=== PATIENT | male | born 1950 | race Caucasian/White ===

== ENCOUNTER 2019-02-19 14:40 | Inpatient (IN) | payer MEDICARE, OTHER, SELFPAY ==
[2019-02-19] VITALS (14 sets, daily range): BP systolic 123–154; BP diastolic 75–96; PULSE 52–67; RESP 12–18; TEMP 36.4–36.9; O2SAT 95–98; BMI 25.1; BMI 24.3
--- NOTE | 2019-02-19 15:14 | EKG12_ITS ---
Test Reason : NEURO Blood Pressure : / mmHG Vent. Rate : 057 BPM Atrial Rate : 057 BPM P-R Int : 172 ms QRS Dur : 082 ms QT Int : 396 ms P-R-T Axes : 054 010 035 degrees QTc Int : 385 ms Sinus bradycardia Otherwise normal ECG Confirmed by ALEKSANDER HOWARD, CYNDIE ([id number]), food expeditor SARAH BEE ([id number]) on 02/21/2019 10:34:24 AM Referred By: MITCH Confirmed By:GEM ARMIJO MD
--- NOTE | 2019-02-19 15:14 | RAD_ITS ---
STUDY: X-RAY CHEST REASON FOR EXAM: Male, 68 years old. TECHNIQUE: COMPARISON: None. FINDINGS: The lungs are clear and expanded. There is no demonstrated pleural abnormality. Normal size heart. Normal mediastinum and ansley. Normal visualized pulmonary arteries. Normal visualized aortic arch and descending thoracic aorta. Normal visualized thoracic spine. Normal visualized ribs, clavicles, and shoulders. There is no demonstrated abnormality of the visualized soft tissue structures of the upper abdomen. RAD/Chest 1 View IMPRESSION: Normal x-ray examination of the chest. Electronically Signed: Leander Bautista, at 15:36 EDT Tel , Service support ,
--- NOTE | 2019-02-19 15:14 | CT_ITS ---
HISTORY: Expressive aphasia, confusion, dizziness COMPARISON: None. TECHNIQUE: Helical CT axial images are obtained from the base of skull through the vertex without IV contrast. Multiplanar reconstruction. A radiation dose optimization technique was used for this scan. # of images incl. paperwork: [phone] FINDINGS: No parenchymal hemorrhage, infarct, intra-axial mass, mass effect, or midline shift. No abnormal extra-axial fluid collections. Ventricles are normal in size and configuration. No hydrocephalus. Bone windows show no skull fracture or calvarial lesions. Visualized paranasal sinuses are clear. Visualized mastoid air cells are clear. ASPECTS Score for Acute Strokes: 10 CT/Brain/Head without Contrast IMPRESSION: 1. No CT evident acute infarct or acute intracranial disease. Individualized dose optimization techniques were used for this CT. at 1625 Reported and signed by: Denis Graff MD Electronically Signed: Denis Graff MD at 16:24 EDT Tel , Service support ,
--- NOTE | 2019-02-19 15:18 | ED.DCSUM_ITS ---
- ER Visit Summary Date of Service: 02/19/19 Chief Complaint: Confusion History of Present Illness: The patient is a 68 M who presents the emergency department feeling confused. He states that he went to bed last night around 2130 hrs. He states he felt very tired. He had difficulty sleeping. When he woke this morning he felt confused. He had difficulty finding words. He spoke on the phone about 1 hour prior to arrival and was brought to the emergency department. He denies any headache. No recent trauma. He states he has a history of prostate cancer for which she had surgery about 13 years ago. He currently takes no medications he is a former smoker. Occasionally uses alcohol. He denies any arm leg face or vision symptoms. No sensory changes. No difficulty swallowing. Physical Examination: Afebrile vital signs are stable Gen: Well-nourished well-developed Head: Normocephalic atraumatic Eyes: Perrl EOMI ENT: TMs clear no rhinorrhea moist mucous membranes Neck: Supple no lymphadenopathy no JVD nontender CVS: Regular rate rhythm no murmurs normal S1-S2 Respiratory: No distress clear to auscultation bilaterally chest nontender Abdomen: Soft nontender nondistended normal bowel sounds no masses Back: Nontender Extremity: Nontender no edema Skin: Normal color no rash Neuro: alert orientated ?3 CN II-XII intact normal strength sensation reflexes gait cerebellar patient scores 1 point on the NIH stroke scale for expressive aphasia. He could not tell me what a hammock or cactus was. He could not fully explain the picture with the belly and the cookie jar and the mom doing dishes. Psych: Normal affect normal mood Test Results: Basic labs were negative. Chest x-ray negative. EKG showed a sinus rhythm at a rate of 57. Initial head CT was negative. CTA of the head and neck was obtained and negative.. Emergency Department Course and Treatment: Patient has evidence of an expressive aphasia. Plan is admission for further evaluation and treatment. Impression: 1. Acute stroke 2. Expressive aphasia This note was generated with [employer] dictation software. It may contain incorrect words, spelling, and punctuation that were not noted in review of the chart pr ior to signing ED Disposition - Plan for ED Patient: Referrals: NOT,DEFINED [NON-STAFF] -
--- NOTE | 2019-02-19 15:30 | NURSING ---
NO OLD EKGS
[2019-02-19 15:31] LABS: Absolute Lymphocyte Count 0.97 X10^3/ul (0.83-4.51); Absolute Neutrophil Count 3.5 X10^3/uL (2.0-7.7); Basophil# 0.03 X10^3/uL; Basophil% 0.6 % (0-1); Eosinophil# 0.12 X10^3/uL; Eosinophils% 2.3 % (0-5); Hematocrit 38.9 % (40-54); Hemoglobin 13.4 g/dl (13.0-16.5); Lymphocyte # 0.97 X10^3/ul (4.0); Lymphocyte % 18.3 % (19-41); Mean Corp Hgb Conc 34.4 g/gl (32-36); Mean Corpuscular Hgb 29.4 pg (27.0-32.0); Mean Corpuscular Volume 85.3 fL (80-94); Mean Platelet Vol. 8.6 fl (6.2-12.0); Monocyte# 0.69 X10^3/uL; Neutrophil # 3.49 X10^3/uL (2.7-7.7); Neutrophil % 65.6 % (47-70); Platelet Count 186 K/mm3 (150-450); RBC Distribution Width CV 12.8 % (11.6-14.6); RBC Distribution Width SD 39.9 fl (35.1-43.9); Red Blood Count 4.56 M/mm3 (4.6-6.2); White Blood Count 5.3 K/mm3 (4.4-11.0)
[2019-02-19 15:43] LABS: Prothrombin Time (Protime)PT. 13.2 SECONDS (11.7-14.9)
[2019-02-19 15:44] LABS: Partial Thromboplast Time 31.6 Seconds (24.1-36.2)
[2019-02-19 15:45] LABS: Bedside Glucose 92 mg/dL (70-110)
[2019-02-19 15:48] LABS: Anion Gap 3 (5-15); BUN 20 mg/dL (7-18); BUN/Creat Ratio 16.1 RATIO (10-20); Chloride 108 mmol/L (98-107); Creatinine, Serum 1.24 mg/dL (0.70-1.30); EST Glomerular Filtration Rate 62 mL/min (>60); Est Glom Filt Rate - Afr Amer 75 mL/min (>60); Glucose 99 mg/dL (74-106); Potassium 3.9 mmol/L (3.5-5.1); Sodium Level 139 mmol/L (136-145)
[2019-02-19 15:49] LABS: POSITIVE COUNT NO; POSITIVE DIFFERENTIAL NO; POSITIVE MORPHOLOGY NO
--- NOTE | 2019-02-19 16:30 | CT_ITS ---
HISTORY: Stroke/weakness COMPARISON: Noncontrast CT brain performed earlier same day TECHNIQUE: Helical CT axial images are obtained from the base of skull through the vertex with 100 ml of Isovue 370 intravenous contrast. Multiplanar reconstruction. 3D image processing was also performed. A radiation dose optimization technique was used for this scan. # of images incl. paperwork: 713 FINDINGS: Distal aspect of bilateral internal carotid arteries are normal in caliber and morphology without focal stenosis or aneurysm. Bilateral anterior and middle cerebral arteries have a normal appearance. Patent anterior communicating artery is not demonstrated. Basilar artery is normal in caliber and morphology without high-grade stenosis or basilar tip aneurysm. Bilateral posterior cerebral arteries are identified emanating from the basilar tip and are within normal limits. Non-visualized right PCOM, visualized diminutive caliber left PCOM. Vertebrobasilar junction is intact. No aneurysm, branch occlusion, high-grade stenosis, or arteriovenous malformation. CT/CTA Head W/WO Contrast IMPRESSION: 1. Negative CTA of the brain. Individualized dose optimization techniques were used for this CT. at 1721 Reported and signed by: Denis Graff MD Electronically Signed: Denis Graff MD at 17:19 EDT Tel , Service support ,
--- NOTE | 2019-02-19 16:30 | CT_ITS ---
HISTORY: Stroke/weakness COMPARISON: CTA brain performed at same time. TECHNIQUE: Helical CT axial images are obtained from the thoracic inlet through the skull base with 100 ml of Isovue 370 intravenous contrast. Multiplanar reconstruction. 3D image processing was also performed. NASCET criteria using the distal ICAs for comparison were used for evaluation of carotid stenosis. A radiation dose optimization technique was used for this scan. # of images incl. paperwork: [phone] FINDINGS: CAROTID: Bilateral common carotid arteries, carotid bifurcations, and cervical course of bilateral internal carotid arteries are within normal limits without focal stenosis, aneurysm, or dissection. Origin and proximal visualized branches of bilateral external carotid arteries appear normal. VERTEBRAL: Bilateral vertebral arteries have a normal appearance with right dominance. OTHER: Origin of the great vessels are within normal limits. CT/CTA Neck W/WO Contrast IMPRESSION: 1. Negative CTA of the neck. Individualized dose optimization techniques were used for this CT. at 1721 Reported and signed by: Denis Graff MD Electronically Signed: Denis Graff MD at 17:20 EDT Tel , Service support ,
[2019-02-19 16:45] LABS: AST(SGOT) 20 U/L (15-37); Alanine Aminotransfer ALT/SGPT 21 U/L (16-61); Albumin, Serum 3.5 g/dL (3.2-5.0); Alkaline Phosphatase 62 U/L (45-117); Bilirubin, Direct 0.08 mg/dL (0.00-0.30); Protein, Total 7.5 g/dL (6.4-8.2)
--- NOTE | 2019-02-19 17:30 | NURSING ---
DR KEYONA MEYER
--- NOTE | 2019-02-19 17:37 | NURSING ---
PCU OBS ACUTE STROKE, EXPRESSIVE APHASIA KEYONA
--- NOTE | 2019-02-19 18:03 | HP.PCM_ITS ---
Problem List (1) CVA (cerebral vascular accident) Status: Acute Qualifiers: CVA mechanism: unspecified Qualified Code(s): I63.9 - Cerebral infarction, unspecified History of Present Illness Date of Admission: 02/19/19 Chief Complaint: expressive aphasia. The patient is a 68 year old M who is in normal state of health up until today just felt slightly off and then this afternoon, was having trouble getting the words out. Spoke with the son and was noted to have expressive a aphasia and brought to the emergency room. Patient continued to have expressive aphasia and underwent a stroke work-up, with CT of the head, CTA of the head neck. Those images were unremarkable patient continued to have expressive aphasia. Patient has never had this issue before. Patient's neurologic evaluation was otherwise negative except for this expressive a aphasia. [] Past Medical History Medical History: Medical History (Last Updated 02/19/19 @ 18:04 by David Burnette DO) Hyperlipidemia E78.5 Allergies No Known Allergies Allergy (Verified 02/19/19 14:42) Surgical History: Surgical History (Last Updated 02/19/19 @ 18:05 by David Burnette DO) S/P tendon repair Z98.890 in RUE Lives: Spouse/ Significant Other Smoking Status: Former smoker Tobacco Use: Cigars Alcohol: Occasional Drugs: None - *Family History Maternal History Items: - - no CVA Review of Systems Constitutional: Denies: Chills, Fever, Weight Change Eyes: Reports: Blurred vision. Denies: Double vision HEENT: Denies: Head Aches, Sinus Congestion, Sinus Drainage Cardiovascular: Denies: Chest Pain, Palpitations Respiratory: Denies: Cough, Shortness of breath at rest, Sputum production Gastrointestinal: Denies: Abdominal Pain, Nausea, Vomiting Genitourinary: Denies: Dysuria Musculoskeletal: Denies: Joint Pain, Joint Tenderness Skin: Denies: Rash, Wounds Neurological: Reports: Headaches, - - Expressive a aphasia. Denies: Slurred speech, Focal weakness, Numbness, Tingling Psychiatric: Denies: Anxiety, Depression Endocrine: Denies: Change in Body Habitus, Heat/ Cold Intolerance Hematologic/ Lymphatic: Denies: Easy Bruising, Easy Bleeding, Hx of blood clot Comment: A 10 point review of systems were negative except as mentioned in the history of present illness and the other review of systems. VTE Information - Inpt Only VTE Present on Admission: No VTE Mechan Device Prophylaxis: None VTE Pharm Prophylaxis ordered?: No Reason prophylaxis not ordered:: Procedure Not Indicated Patient Problems: Active and Suspected Problems CVA (cerebral vascular accident) (Acute) - Physical Exam General: Alert, No apparent distress HEENT: Atraumatic, PERRLA, EOMI, Normocephalic Oral: Moist Mucosa, No Gingival or Mucosal Lesions/ Ulcerations Neck: No Nodes, Thyroid Normal Size and Texture Lungs: Clear to auscultation, Normal air movement, No rhonchi, No wheeze, No rales Cardiovascular: Regular rate, Regular Rhythm, Normal S1, Normal S2, No murmurs Abdomen: Bowel Sounds Present, Soft, Non Tender, Non-Distended, No Hepato- splenomegaly, Passing Flatus Extremities: No edema, No Calf Tenderness Skin: No rashes, No breakdown Musculoskeletal: No Tenderness to Palpation of Joints or Extremities, No Muscle Wasting Neurological: Cranial nerves II-XII grossly intact, Motor Exam 5/5 strength throughout, - - Trouble with words. Patient had an NIH of 1. Difficulty tell me the names of objects, particularly the cactus in the hammock. Had some difficulty explaining the picture of the kitchen was able to talk about the children but what they were doing but had some trouble knowing what the woman in the pitcher was doing. Psych/Mental Status: Normal Affect, Appropriate Vital Signs Temp Pulse Resp BP Pulse Ox 36.6 C 54 L 16 154/86 H 96 02/19/19 14:41 02/19/19 17:16 02/19/19 17:16 02/19/19 17:16 02/19/19 17:16 Oxygen Delivery Method Room Air Weight: 77.111 kg Body Mass Index (BMI) 25.1 Finger Stick Blood Glucose 92 Laboratory Tests Past 24 Hrs 02/19/19 02/19/19 02/19/19 15:20 15:20 15:20 WBC 5.3 RBC 4.56 L Hgb 13.4 Hct 38.9 L MCV 85.3 MCH 29.4 MCHC 34.4 RDW 12.8 RDW Differential 39.9 Plt Count 186 MPV 8.6 Immature Gran % (Auto) 0.200 Neut % (Auto) 65.6 Lymph % (Auto) 18.3 L [place] % (Auto) 13.0 H Eos % (Auto) 2.3 Baso % (Auto) 0.6 Absolute Neuts (auto) 3.5 Absolute Lymphs (auto) 0.97 Total Counted Not Reportable PT 13.2 INR 1.0 APTT 31.6 Sodium 139 Potassium 3.9 Chloride 108 H Carbon Dioxide 28.0 Anion Gap 3 L BUN 20 H Creatinine 1.24 Estim Creat Clear Calc 58.60 Est GFR (MDRD) Af Amer 75 Est GFR (MDRD) Non-Af 62 BUN/Creatinine Ratio 16.1 Glucose 99 Calcium 9.0 Total Bilirubin Direct Bilirubin AST ALT Alkaline Phosphatase Troponin I < 0.015 Total Protein Albumin Globulin 02/19/19 15:20 WBC RBC Hgb Hct MCV MCH MCHC RDW RDW Differential Plt Count MPV Immature Gran % (Auto) Neut % (Auto) Lymph % (Auto) [place] % (Auto) Eos % (Auto) Baso % (Auto) Absolute Neuts (auto) Absolute Lymphs (auto) Total Counted PT INR APTT Sodium Potassium Chloride Carbon Dioxide Anion Gap BUN Creatinine Estim Creat Clear Calc Est GFR (MDRD) Af Amer Est GFR (MDRD) Non-Af BUN/Creatinine Ratio Glucose Calcium Total Bilirubin 0.40 Direct Bilirubin 0.08 AST 20 ALT 21 Alkaline Phosphatase 62 Troponin I Total Protein 7.5 Albumin 3.5 Globulin 4.0 POC Glucose 02/19/19 15:37 POC Glucose 92 Clinical Impression(s) from Imaging Studies Brain CT 02/19/19 15:14 IMPRESSION: 1. No CT evident acute infarct or acute intracranial disease. Individualized dose optimization techniques were used for this CT. at 1625 Reported and signed by: Denis Graff MD Electronically Signed: Denis Graff MD at 16:24 EDT Tel , Service support , Chest X-Ray 02/19/19 15:14 IMPRESSION: Normal x-ray examination of the chest. Electronically Signed: Leander Bautista, at 15:36 EDT Tel , Service support , Head CTA 02/19/19 16:30 IMPRESSION: 1. Negative CTA of the brain. Individualized dose optimization techniques were used for this CT. at 1721 Reported and signed by: Denis Graff MD Electronically Signed: Denis Graff MD at 17:19 EDT Tel , Service support , Neck CTA 02/19/19 16:30 IMPRESSION: 1. Negative CTA of the neck. Individualized dose optimization techniques were used for this CT. at 1721 Reported and signed by: Denis Graff MD Electronically Signed: Denis Graff MD at 17:20 EDT Tel , Service support , EKG reviewed and showed normal sinus rhythm with no acute changes. Assessment/Plan All Active Problems CVA (cerebral vascular accident) (Acute) 1. Acute stroke, acute * Plan is to continue with the remainder of the neurologic evaluation, including MRI of the brain, echocardiogram, neurology consultation, physical, occupational and speech therapy evaluation. * Start aspirin and statin 2. VTE prophylaxis: Patient being brought in her observation status and length of stay is less than 24 hours, anticipated. If hospitalization wants a being longer than VTE prophylaxis would be indicated at that time but hold off at this point in time. Patient low risk given the short stay. Code Visit OBSV E&M: [id number] Initial observation care L3
--- NOTE | 2019-02-19 18:13 | ECHOD_ITS ---
Reason For Study: TIA/CVA Procedure This was a 2D Doppler, Color Flow transthoracic echocardiogram. Exam performed portable in patient room. Left Ventricle Normal size and thickness. The estimated ejection fraction is 60 %. Normal diastology for age. No regional wall motion abnormalities noted. Right Ventricle Normal RV size. Normal systolic function. Atria Normal left atrium. Normal right atrium. No doppler evidence for ASD. Bubble contrast study negative for right to left interatrial shunt. Mitral Valve There is no mitral valve stenosis. No mitral valve insufficiency. Tricuspid Valve There is no tricuspid stenosis. Unable to estimate RV systolic pressure due to insufficient tricuspid regurgitant envelope. Trivial tricuspid valve insufficiency. Aortic Valve Trisinus/trileaflet aortic valve. There is no aortic stenosis. No aortic valve insufficiency. Pulmonic Valve There is no pulmonic valvular stenosis. Trivial pulmonic valve insufficiency. Great Vessels Normal aortic root. Pericardium/Pleural No pericardial effusion. Medication Performed a rapid injection of agitated mix of 9 cc saline and 1cc air to assess for atrial septal defect. MMode/2D Measurements & Calculations LVIDd: 4.9 cm IVSd: 0.81 cm Ao root diam: 3.6 cm LVIDs: 3.1 cm LVPWd: 0.94 cm FS: 38.0 % LAV(MOD-bp): 56.7 ml LA A4 area: 19.7 cm2 LA dimension(2D): 3.3 cm LAV(MOD-bp) Indexed: 29.5 ml/m2 LAV(MOD-sp2): 53.6 ml LAV(MOD-sp4): 53.3 ml RA A4 area: 20.5 cm2 Time Measurements MV dec time: 0.23 sec Doppler Measurements & Calculations MV E max chapin: 76.9 cm/sec Lat Peak E' Chapin: 10.3 cm/sec Med Peak E' Chapin: 9.6 cm/sec MV A max chapin: 61.2 cm/sec E/E' lat: 7.4 E/E' med: 8.0 MV E/A: 1.3 Ao V2 max: 135.0 cm/sec LV V1 max: 107.1 cm/sec PA V2 max: 91.0 cm/sec Ao max P.6 mmHg LV V1 max P.6 mmHg TR max chapin: 203.8 cm/sec TR max P.6 mmHg Interpretation Summary The estimated ejection fraction is 60 %. Normal diastology for age. No doppler evidence for ASD. Bubble contrast study negative for right to left interatrial shunt. Trivial pulmonic valve insufficiency. Ordering Physician: David Burnette Referring Physician: OTD Performed By: Sophie Linton RDCS, RVT
--- NOTE | 2019-02-19 18:13 | MRI_ITS ---
STUDY: MRI BRAIN WITH AND WITHOUT CONTRAST REASON FOR EXAM: Male, 68 years old. CVA with expressive aphasia TECHNIQUE: Standardized multiplanar fat and water weighted pulse sequences were obtained. 15 IV Dotarem was administered for the contrast portion of the examination. COMPARISON: CT same day FINDINGS: Normal size of the ventricles and extra-axial spaces for the patient's age. There are a limited number of small white matter hyperintensities, distributed throughout the deep white matter tracts of the cerebral hemispheres, consistent with mild chronic white matter ischemic changes. Normal bilateral basal ganglia. Normal thalami. There is no extra-axial fluid accumulation. Normal flow voids within the major intracranial circulation suggesting patency by spin echo criteria. Normal venous enhancement. There is no enhancing intra-axial or extra-axial abnormality. Normal sella turcica, pituitary gland, infundibular stalk, optic chiasm and hypothalamus. Normal tectal plate and pineal gland. Normal midbrain, bahman and medulla. Normal cerebellum. Normal basal cisterns. Normal bilateral temporal bones. Normal bilateral internal auditory canals. No demonstrated orbital abnormality, within the constraints of a routine brain study. Normal visualized paranasal sinuses. Normal calvarium and skull base. Normal visualized soft tissue structures. Normal visualized upper cervical spine. MRI/Brain W/WO Contrast IMPRESSION: Mild microangiopathic white matter disease. No evidence of acute infarct or hemorrhage. Electronically Signed: Mando Ramsey MD at 20:10 EDT Tel , Service support ,
[2019-02-19] MEDS: Aspirin 325 MG Tablet PO (20:03)
[2019-02-19] MEDS: Atorvastatin Calcium 80 MG Tablet PO (23:03)
[2019-02-20] VITALS (12 sets, daily range): BP systolic 116–134; BP diastolic 66–86; PULSE 45–62; RESP 15–17; TEMP 36.5–37.5; O2SAT 93–96; BMI 24.3
[2019-02-20 06:22] LABS: Cholesterol 270 mg/dL (200); High Density Lipoprotein 62 mg/dL; Triglycerides 101 mg/dL; Very Low Density Lipoprotein 20 mg/dL (5-40)
[2019-02-20] MEDS: Aspirin 81 MG TAB.CHEW PO (08:23)
--- NOTE | 2019-02-20 10:00 | CON.PCM_ITS ---
Reason for Consult Date of Consultation: 02/20/19 Reason for Consultation: APHASIA History of Present Illness: The patient is a 68 year old M AWOKE yesterday am with language trouble, now improved but not back to normal. no other issues. some stress recently, daughter reports he is confused and foggy. does audits apparently made errors. takes vitamins at home but no prescriptions at home. vitamins include vit c, centrum. no other meds he has been exposed to, family does indicate significant stress. mild headaches, admits to poor sleep efficiency for unclear reasons. per hospitalist note:The patient is a 68 year old M who is in normal state of health up until today just felt slightly off and then this afternoon, was having trouble getting the words out. Spoke with the son and was noted to have expressive a aphasia and brought to the emergency room. Patient continued to have expressive aphasia and underwent a stroke work-up, with CT of the head, CTA of the head neck. Those images were unremarkable patient continued to have expressive aphasia. Patient has never had this issue before. Patient's neurologic evaluation was otherwise negative except for this expressive a aphasia. Past Medical History Medical History: Medical History (Last Reviewed 02/20/19 @ 10:39 by Zhao Marx MD) Hyperlipidemia E78.5 Allergies No Known Allergies Allergy (Verified 02/19/19 14:42) Surgical History: Surgical History (Last Reviewed 02/20/19 @ 10:39 by Zhao Marx MD) S/P tendon repair Z98.890 in RUE Lives: Spouse/ Significant Other Smoking Status: Former smoker Tobacco Use: Cigars Alcohol: Occasional Drugs: None - *Family History Maternal History Items: - - no CVA Review of Systems Constitutional: Denies: Chills, Fever, Weight Change HEENT: Reports: Head Aches. Denies: Sinus Congestion, Sinus Drainage Cardiovascular: Denies: Chest Pain, Palpitations Respiratory: Denies: Cough, Shortness of breath at rest, Sputum production Gastrointestinal: Denies: Abdominal Pain, Nausea, Vomiting Genitourinary: Denies: Dysuria Musculoskeletal: Denies: Joint Pain, Joint Tenderness Skin: Denies: Rash, Wounds Neurological: Reports: Change in Speech. Denies: Focal weakness, Numbness, Tingling Psychiatric: Denies: Anxiety, Depression, Homicidal Ideations, Suicidal Ideations Hematologic/ Lymphatic: Denies: Easy Bruising, Easy Bleeding Patient Problems: Active and Suspected Problems (Last Reviewed 02/20/19 @ 10:39 by Zhao gan MD) CVA (cerebral vascular accident) (Acute) - Physical Exam General: Alert, Oriented x3, Cooperative, No apparent distress HEENT: PERRLA, EOMI Neurological: Cranial nerves II-XII grossly intact, Neuro grossly intact, Motor Exam 5/5 strength throughout, Slurred Speech, Muscle tone normal, Sensory exam intact to light touch and pain Psych/Mental Status: Normal Affect, Alert and oriented to time, place, person, mood and affect - knows [facility], hospital, knows president, not vp ad products and planning, doesnt know year, month or date. Vital Signs Temp Pulse Resp BP Pulse Ox 36.7 C 54 L 16 134/86 H 96 02/20/19 08:16 02/20/19 08:16 02/20/19 08:16 02/20/19 08:16 02/20/19 08:16 Oxygen Delivery Method Room Air Weight: 74.571 kg Body Mass Index (BMI) 24.3 Finger Stick Blood Glucose 92 Intake and Output for Last 24 Hours 02/18/19 02/19/19 02/20/19 23:59 23:59 23:59 Intake Total 240 / 240 60 / 60 Balance 240 / 240 60 / 60 Laboratory Tests Past 24 Hrs 02/19/19 02/19/19 02/19/19 15:20 15:20 15:20 WBC 5.3 RBC 4.56 L Hgb 13.4 Hct 38.9 L MCV 85.3 MCH 29.4 MCHC 34.4 RDW 12.8 RDW Differential 39.9 Plt Count 186 MPV 8.6 Immature Gran % (Auto) 0.200 Neut % (Auto) 65.6 Lymph % (Auto) 18.3 L [place] % (Auto) 13.0 H Eos % (Auto) 2.3 Baso % (Auto) 0.6 Absolute Neuts (auto) 3.5 Absolute Lymphs (auto) 0.97 Total Counted Not Reportable PT 13.2 INR 1.0 APTT 31.6 Sodium 139 Potassium 3.9 Chloride 108 H Carbon Dioxide 28.0 Anion Gap 3 L BUN 20 H Creatinine 1.24 Estim Creat Clear Calc 58.60 Est GFR (MDRD) Af Amer 75 Est GFR (MDRD) Non-Af 62 BUN/Creatinine Ratio 16.1 Glucose 99 Calcium 9.0 Total Bilirubin Direct Bilirubin AST ALT Alkaline Phosphatase Troponin I < 0.015 Total Protein Albumin Globulin Triglycerides Cholesterol LDL Cholesterol VLDL Cholesterol HDL Cholesterol 02/19/19 02/20/19 15:20 05:50 WBC RBC Hgb Hct MCV MCH MCHC RDW RDW Differential Plt Count MPV Immature Gran % (Auto) Neut % (Auto) Lymph % (Auto) [place]th[place] % (Auto) Eos % (Auto) Baso % (Auto) Absolute Neuts (auto) Absolute Lymphs (auto) Total Counted PT INR APTT Sodium Potassium Chloride Carbon Dioxide Anion Gap BUN Creatinine Estim Creat Clear Calc Est GFR (MDRD) Af Amer Est GFR (MDRD) Non-Af BUN/Creatinine Ratio Glucose Calcium Total Bilirubin 0.40 Direct Bilirubin 0.08 AST 20 ALT 21 Alkaline Phosphatase 62 Troponin I Total Protein 7.5 Albumin 3.5 Globulin 4.0 Triglycerides 101 Cholesterol 270 H LDL Cholesterol 188 H VLDL Cholesterol 20 HDL Cholesterol 62 POC Glucose 02/19/19 15:37 POC Glucose 92 Current Medications Acetaminophen 650 mg 02/19/19 18:13 Tylenol PO Q6H PRN PRN Mild pain 1-3/Temp > 100.7 F Aspirin 81 mg 02/20/19 08:00 02/20/19 08:23 Aspirin, Baby PO 81 mg DAILY@0800 PENNY Administration Atorvastatin Calcium 80 mg 02/19/19 22:00 02/19/19 23:03 Lipitor PO 80 mg QHS PENNY Administration Dextrose 0 gm 02/19/19 18:13 D50w Syringe IV X1 PRN Hypoglycemia Protocol Glucagon 1 mg 02/19/19 18:13 IM .X1 PRN Hypoglycemia Ondansetron HCl 4 mg 02/19/19 18:13 Zofran IV Q8H PRN PRN NAUSEA/VOMITING MRI reviewed no acute Assessment/Plan All Active Problems (Last Reviewed 02/20/19 @ 10:39 by Zhao Marx MD) CVA (cerebral vascular accident) (Acute) exp aphasia, mri neg, further evaluation for sz, visiting nurse infection, vs complex migraine rec: lp, eeg, asa, pt/ot/sp
--- NOTE | 2019-02-20 13:20 | CASEMGMT ---
RN CM Assessment Presentation: TIA/CVA, expressive aphasia Intro role of CM and purpose of RN CM assessment to patient and his . Pt is awake, alert and able to participate in assessment. Demographics, PCP and Pharmacy verified. Pt lived independently prior to admission. states no care needs prior to admission. Pt requires further testing prior to dc per physician. Anticipate discharge tomorrow. Speech therapy recommending further therapy for expressive aphasia. Pt is from [place], [place] area. Spoke with pt/ re: options for oupt therapy. They prefer [facility] on dc. RN CM will fax script. PCP: Dr. Moralez Specialists: Dr. Marx Preferred Pharmacy: [facility] Pharmacy, [place], [place] Insurance: [facility] Prescription Benefit: yes LNOK: Colleen Rojo, Living Arrangements: Two story home with bedrooms/bath upstairs and bathroom downstairs. No difficulty with stairs prior to admission. Transportation: Drives, or can drive. DME: none HHC: none Patient DC goals: Home DC PLAN: Home with Speech Therapy @ [facility]. Skylar LOPEZN RN ACM
--- NOTE | 2019-02-20 13:28 | CASEMGMT ---
SW did not complete PHQ-9 as Neurologist does not feel patient had a Stroke or TIA. Uzma GARCES MSW
--- NOTE | 2019-02-20 16:53 | PN_ITS ---
Subjective: Patient was seen and examined today, I briefly talked with neurology about his care, neurology feels that the patient has not had a stroke that he probably has a complex migraine. Patient is imaging studies do not show any evidence of acute stroke, NIH scores were stopped today (I discussed this with neurology), patient had an EEG performed and will be unable to have an LP performed until tomorrow. Patient was made a full admission today - Physical Exam General: Alert, Oriented x3, Cooperative, No apparent distress, Well developed HEENT: Atraumatic, PERRLA, EOMI, Normocephalic Oral: Moist Mucosa Neck: Supple, Trachea Midline, Thyroid Normal Size and Texture Lungs: Clear to auscultation, Normal air movement, No rhonchi, No wheeze Cardiovascular: Regular rate, Regular Rhythm, Normal S1, Normal S2, No murmurs, No Ectopic Activity Abdomen: Bowel Sounds Present, Soft, Non Tender Extremities: No clubbing, No cyanosis, No edema, Capillary Refill Less than 3 Seconds Skin: No rashes, No breakdown Musculoskeletal: No Tenderness to Palpation of Joints or Extremities Neurological: Cranial nerves II-XII grossly intact, Neuro grossly intact, - - Evidence of some halting of the patient's speech is noted instead of expected fluency Psych/Mental Status: Normal Affect, Appropriate, Alert and oriented to time, place, person, mood and affect Vital Signs Temp Pulse Resp BP Pulse Ox 97.8 F 53 L 15 117/72 93 02/20/19 11:56 02/20/19 11:56 02/20/19 11:56 02/20/19 11:56 02/20/19 11:56 Oxygen Delivery Method Room Air Weight: 74.5 kg Body Mass Index (BMI) 24.3 Finger Stick Blood Glucose 92 Intake and Output for Last 24 Hours 02/18/19 02/19/19 02/20/19 23:59 23:59 23:59 Intake Total 240 / 240 810 / 810 Balance 240 / 240 810 / 810 Laboratory Tests Past 24 Hrs 02/20/19 05:50 Triglycerides 101 Cholesterol 270 H LDL Cholesterol 188 H VLDL Cholesterol 20 HDL Cholesterol 62 Medical Necessity - Tobacco Use Smoking Status: Former smoker Tobacco Use: Cigars Assessment/Plan All Active Problems (Last Reviewed 02/20/19 @ 10:39 by Zhao Marx MD) CVA (cerebral vascular accident) (Ruled-out) #1 expressive aphasia-possibly secondary to complex migraine-continue to mo nitor, patient will have an LP tomorrow, neurology recommends continuing baby aspirin #2 hyperlipidemia-patient is currently on Lipitor this will continue as an outpatient Code Visit Inpatient E&M: 84925 Init Hosp L3
[2019-02-20] MEDS: Atorvastatin Calcium 80 MG Tablet PO (22:02)
[2019-02-21 03:00] VITALS: PULSE 45
[2019-02-21 03:25] VITALS: BP 127/78; PULSE 52; RESP 16; TEMP 36.4; O2SAT 94
[2019-02-21 07:26] VITALS: PULSE 51
[2019-02-21 08:40] VITALS: BP 113/71; PULSE 69; RESP 17; TEMP 36.6; O2SAT 97; BMI 24.3
[2019-02-21] MEDS: Aspirin 81 MG TAB.CHEW PO (08:43)
--- NOTE | 2019-02-21 09:55 | RAD_ITS ---
Under fluoroscopic control and the following appropriate antiseptic skin preparation and local anesthesia, 22-gauge spinal needle was introduced into the subarachnoid space at the level of L3-4. 6.5 cc of clear CSF fluid were collected in two tubes and sent to the floor assessment. The patient tolerated the procedure well. RAD/Fluoro Guided Lumbar Puncture IMPRESSION: Uneventful lumbar puncture with CSF collected. Electronically Signed: Leander Bautista, at 11:15 EDT Tel , Service support ,
--- NOTE | 2019-02-21 10:22 | FLU_PTH ---
PATIENT: VALERIE LEW LOC: [facility] U#:[id number] AGE/SX: 68/M ROOM: [facility] RE02/20/[address]: Dr. Jerry Perrin DO : 1950 BED: 1 DIS: 02/21/2019 SPEC #: [id number] RECD: 02/21/19 11:41 STATUS: THANG REQ #: [id number] NHAN: 02/21/19 10:[address]: Jerry Perrin DEPT: CYTOLOGY RECD BY: Blayne Ernandez ENTERED: 02/21/19 11:42 SP TYPE: Fluid OTHR DR: DO Dr. Zhao Penny MD [facility] Tissues: Cerebrospinal Fluid Procedures: Special Stain Group II Cytospin Fluid HEADER OPERATION: Not noted PRE-OP DIAGNOSIS: Acute stroke, expressive APHAS TISSUE SUBMITTED: Cerebrospinal fluid for cytology DIAGNOSIS CYTOLOGY Cerebrospinal fluid for cytology (cytospin): Acellular specimen. SJ:rg 02/24/19 COMMENT Clinical correlation and appropriate follow up are necessary. CYTOLOGY STUDY Slides are reviewed. CYTOLOGY GROSS Received is 3 ml of clear colorless fluid labeled with the patient's name and and designated per the requisition as CSF. Submitted for cytology preparation, /CC:gem 02/21/19 TC:4 CPT: 50270
[2019-02-21 10:34] LABS: Cytology, Body Fluid / CSF SEE PATHOLOGY REPORT
[2019-02-21 10:40] LABS: Body Fluid Mononuclear WBC # 0.002 10^3/uL; Body Fluid Mononuclear WBC % 66.7 %; Body Fluid Polynuclear WBC # 0.001 10^3/uL; Body Fluid Polynuclear WBC % 33.3 %; Total Cell Count CSF 0.003 10^3/uL; White Count, CSF 0.003 10^3/uL (0.000-0.005)
[2019-02-21 10:51] LABS: Auto B Fluid Analyzer BKGD Ct COUNTS W/IN LIMITS (W/IN LIMITS); CSF Color COLORLESS (Colorless); Tested Tube # 1
[2019-02-21 10:52] LABS: Appearance CSF (character) CLEAR (Clear); Body Fluid QC Type(s) BF1Q; RBC Count, Spinal Fluid 17 /mm-3 (None seen)
--- NOTE | 2019-02-21 11:02 | EEG ---
- Electroencephalogram Date of service 02/20/2019 History EEG is being done in this 68 yr M to rule out seizures EEG Description: This is an 18 channel EEG with 10-20 lead placement system. Bipolar montages, and Referential montages were reviewed. Photic stimulation and Hyperventilation were performed. The posterior dominant rhythm is 9 HZ synchronous, symmetric, reacting to eye opening and closing. Photo stimulation elicited normal driving response but no abnormal photoparoxysmal response, Hyperventilation did not elicit any abnormal photoparoxysmal response. Sleep was identified. There is no abnormal background slowing noted. There was no epileptiform discharges or electrographic seizures noted during this recording. EKG artefact noted during the record. Muscle artefact noted during the entire record especially in the frontal leads. Multiple episodes of apnea documented by the plant and maintenance technician during the record. EEG Interpretation This is abnormal EEG due to the presence of multiple apnea episodes. Patient should be evaluated and treated for sleep apnea by obtaining further studies like polysomnography, defer to primary treating physician/PCP. Clinical correlation is advised. There is no epileptiform discharges or electrographic seizures noted during the record.
[2019-02-21 11:30] LABS: Glucose Spinal Fluid 58 mg/dL (40-75)
[2019-02-21 11:31] VITALS: PULSE 56
--- NOTE | 2019-02-21 13:11 | PCM.PN.NEU ---
Subjective: No issues overnight. Patient's expressive aphasia has improved and per patient is at his baseline. He denies any focal motor weakness or sensory loss, vision loss dizziness or headache. Per patient he had difficulty getting the words out and possible expressive aphasia. His symptoms started 2 days ago on 02/19/2019 and his symptoms improved within 24 hours. Denies any fever or neck stiffness. MRI brain done on admission did not show any acute stroke, CTA head/neck did not show any hemodynamically significant stenosis or occlusion. Per patient he may have had some mild headache yesterday. But denies any vision loss, jaw claudication or temporal tenderness. Per ED documentation on admission NIHSS was 1. At present NIHSS is 0. EEG done on admission did not show any epileptiform discharges or electrographic seizures but showed apneic episodes. Patient did not take aspirin at baseline. - Physical Exam General: Alert HEENT: Normocephalic Neck: Supple Lungs: Normal air movement Cardiovascular: Normal S1, Normal S2 Abdomen: Bowel Sounds Present Extremities: No cyanosis Neurological: - - Conscious, alert, CN II through XII grossly intact, power 5/5 all extremities, no sensory loss, no cerebellar signs, Reflexes + B/L B/S/T/K/A, gait deferred. NIHSS 0 at present, mRS 0 baseline Psych/Mental Status: Normal Affect Vital Signs Temp Pulse Resp BP Pulse Ox 97.9 F 56 L 17 113/71 97 02/21/19 08:40 02/21/19 11:31 02/21/19 08:40 02/21/19 08:40 02/21/19 08:40 Oxygen Delivery Method Room Air Weight: 74.5 kg Body Mass Index (BMI) 24.3 Finger Stick Blood Glucose 92 Intake and Output for Last 24 Hours 02/19/19 02/20/19 02/21/19 23:59 23:59 23:59 Intake Total 240 / 240 1725 / 1725 770 / 770 Balance 240 / 240 1725 / 1725 770 / 770 Microbiology Past 72 Hours 02/21/19 09:45 Gram Stain - Final Csf, Spinal Fluid 02/21/19 06:00 Streptococcus pneumoniae Antigen (M - Final Urine, Clean Catch Laboratory Tests Past 24 Hrs 02/21/19 02/21/19 02/21/19 09:45 09:45 09:45 Fld Polynuclear WBCs # Fld Polynuclear WBCs % Fluid Mononuclear WBCs Fld Mononuclear WBCs % CSF Appearance CSF Color CSF WBC CSF RBC CSF Cell Count Tube # CSF Total Cell Counted CSF Comment CSF Glucose 58 CSF Total Protein 77.0 H CSF Cryptococcus Ag Pending HSV I DNA PCR Pending HSV II DNA PCR Pending Miscellaneous Cytology 02/21/19 02/21/19 09:45 09:45 Fld Polynuclear WBCs # 0.001 Fld Polynuclear WBCs % 33.3 Fluid Mononuclear WBCs 0.002 Fld Mononuclear WBCs % 66.7 CSF Appearance CLEAR CSF Color COLORLESS CSF WBC 0.003 CSF RBC 17 H CSF Cell Count Tube # 1 CSF Total Cell Counted 0.003 CSF Comment May follow CSF Glucose CSF Total Protein CSF Cryptococcus Ag HSV I DNA PCR HSV II DNA PCR Miscellaneous Cytology Pending Medical Necessity - Tobacco Use Smoking Status: Former smoker Tobacco Use: Cigars Assessment/Plan All Active Problems (Last Reviewed 02/20/19 @ 10:39 by Zhao Marx MD) CVA (cerebral vascular accident) (Ruled-out) 68-year-old male with PMH HLD, history of prostate cancer admitted with expressive aphasia. Per patient his symptoms have improved and he is at baseline. Impression Possible TIA Plan ?MRI brain did not show any acute stroke ?CTA head/neck did not report any acute hemodynamically significant significant stenosis or occlusion ?Aspirin 81 mg p.o. once daily and Plavix 75 mg p.o. once daily. Dual antiplatelets for 21 days then switch to single antiplatelet. Bleeding risks discussed. ABCD 2 score of 5 ?On Lipitor ?LDL?188, HbA1c pending ?Await TTE ?EEG?no epileptiform discharges or electrographic seizures. Multiple apneic episodes ?Polysomnogram outpatient for evaluation of sleep apnea ?LP?CSF WBC?3, RBC?17, protein?77, glucose?58. ?PT/OT/ST ?GI/DVT prophylaxis ?Fall precautions ?Further medical management per hospitalist team ?Follow-up with neurology as outpatient in 4 weeks ?Please call with questions if any ?Thank you for allowing us to participate in patient's care and management
[2019-02-21] MEDS: Acetaminophen 325 MG Tablet 650 MG PO (14:16)
--- NOTE | 2019-02-21 14:18 | DCINST_ITS ---
You will use the following diet at home:: No restrictions Your food should be the consistency of: Regular Your liquids should be the consistency of: Regular/Thin Discharge Activity: Return to Normal Activity Weight Bearing Status: Full weight bearing Allergies/Adverse Reactions: Allergies No Known Allergies Allergy (Verified 02/19/19 14:42) Medications to take at Discharge Aspirin [Aspirin, Baby] 81 mg PO DAILY@0800 tab.chew 02/21/19 Atorvastatin Calcium [Lipitor] 80 mg PO QHS #30 tab 02/21/19 Clopidogrel Bisulfate [Plavix] 75 mg PO DAILY #30 tab 02/21/19 The following prescriptions were given: Atorvastatin Calcium [Lipitor] 80 mg PO QHS #30 tab Transmission Status: Pending to [id number] Clopidogrel Bisulfate [Plavix] 75 mg PO DAILY #30 tab Transmission Status: Pending to [facility]/pharmacy #[id number] Primary Care Physician: NOT,DEFINED [NON-STAFF] - Test Results: Test results from this visit will be discussed in further detail at your follow- up appointment, if applicable. Please Follow Up With: Emily Johansen MD When: in 3 weeks
[2019-02-21 14:28] VITALS: BP 132/74; PULSE 66; RESP 16; TEMP 36.3; O2SAT 98
--- NOTE | 2019-02-23 10:50 | PCM.DC.SUM ---
Discharge Date and Diagnosis Date of Admission: 02/19/19 Date of Discharge: 02/21/19 - Primary Discharge Diagnosis #1 transient ischemic attack #2 aphasia secondary to transient ischemic attack #3 hyperlipidemia Hospital Course and Treatment Operations: None Procedures: 2-D Echocardiogram, Electroencephalogram, - - Lumbar puncture Summary of Care Provided: The patient is a 68 year old M at [facility] with chief complaint of mental status change with confusion. Patient also has some evidence of expressive a fascia, work-up in the emergency room showed his NIH stroke score to be 1 for expressive aphasia, labs are unremarkable, chest x-ray was negative, CT of the head was unremarkable, CT of the head neck was obtained and was unremarkable. Patient was admitted to PCU for possible acute stroke and expressive aphasia, he was seen in consultation by PT OT and speech therapy, he was seen in consultation by neurology who ordered an EEG and lumbar puncture. MRI was performed which showed no stroke, echocardiogram was unremarkable. EEG and lumbar puncture were unremarkable, patient's symptoms improved dramatically during his hospitalization and neurology felt that the patient probably had a TIA. On 02/21/2019, patient was seen and examined: On examination he appeared in good health and spirits. Vital signs as documented. Skin warm and dry and without overt rashes. Neck without JVD. Lungs clear. Heart exam notable for regular rhythm, normal sounds and absence of murmurs, rubs or gallops. Abdomen unremarkable and without evidence of organomegaly, masses, or abdominal aortic enlargement. Extremities nonedematous. Neuro: Cranial nerves II through XII are grossly intact, no focal motor deficits were noted, sensation to light touch and pinprick intact. Psych: Patient is alert and oriented x3, he does not appear anxious or depressed On 02/21/2019, patient was seen and examined result in stable condition for discharge home - Physical Exam Vital Signs Temp Pulse Resp BP Pulse Ox 97.4 F L 66 16 132/74 H 98 02/21/19 14:28 02/21/19 14:28 02/21/19 14:28 02/21/19 14:28 02/21/19 14:28 Oxygen Delivery Method Room Air Weight: 74.5 kg Body Mass Index (BMI) 24.3 Finger Stick Blood Glucose 92 Intake and Output for Last 24 Hours 02/21/19 02/22/19 02/23/19 23:59 23:59 23:59 Intake Total 770 / 770 Balance 770 / 770 Microbiology Past 72 Hours 02/21/19 09:45 Gram Stain - Final Csf, Spinal Fluid CSF Culture - Preliminary No growth in 48 hours. 02/21/19 06:00 Streptococcus pneumoniae Antigen (M - Final Urine, Clean Catch Discharge Activity: Return to Normal Activity Weight Bearing Status: Full weight bearing Home Medications: Medications to take at Discharge Aspirin [Aspirin, Baby] 81 mg PO DAILY@0800 tab.chew 02/21/19 Atorvastatin Calcium [Lipitor] 80 mg PO QHS #30 tab 02/21/19 Clopidogrel Bisulfate [Plavix] 75 mg PO DAILY #30 tab 02/21/19 Following Prescrptions Were Given to Patient: Atorvastatin Calcium [Lipitor] 80 mg PO QHS #30 tab Transmission Status: Received by [id number] Clopidogrel Bisulfate [Plavix] 75 mg PO DAILY #30 tab Transmission Status: Received by [id number] Primary Care Physician: NOT,DEFINED [NON-STAFF] - Please Follow Up With: Emily Johansen MD When: in 3 weeks Disposition: Home Minutes spent on discharge:: 31 Patient Condition:: Stable Medical Necessity - Tobacco Use Smoking Status: Former smoker Tobacco Use: Cigars Meaningful Use Info Meaningful Use Diagnoses (Choose all that apply): None applicable Code Visit Inpatient E&M: 03108 Disch Hosp
[2019-02-24 07:06] LABS: HSV 1 By PCR Negative (Negative)
[2019-02-24 11:15] LABS: HSV 2 By PCR Negative (Negative)
[2019-02-24 12:40] LABS: Pathologist Review Reviewed
[2019-02-26 12:59] LABS: Cryptococcus Antigen CSF Negative (Negative)
== END 2019-02-21 15:37 | disposition home or self-care (01) | DRG 69 ==
LOC: ED 17:06 → PCU 17:46
PROVIDERS: Psychiatry & Neurology Neurology; Emergency Provider Emergency Medicine; Visit Provider Internal Medicine
DX: G45.9 Transient cerebral ischemic attack, unspecified (principal); R47.01 Aphasia; E78.5 Hyperlipidemia, unspecified; Z87.891 Personal history of nicotine dependence; Z85.46 Personal history of malignant neoplasm of prostate
CPT/HCPCS: 36415; 62270; 70450; 70496; 70498; 70553; 71045; 77003; 80048; 80061; 80076; 82945; 82962; 84157; 84484; 85025; 85610; 85730; 87070; 87205; 87449; 87529; 87899; 88108; 88305; 88313; 89050; 89051; 92507; 92523; 93005; 93306; 95819; 97161; 97166; 97802; 99285; A9575; Q9967; A4216